=== PATIENT | male | born 1995 | race Asian ===

== ENCOUNTER 2019-06-30 17:23 | Inpatient (IN) | payer OTHER ==
--- NOTE | 2019-06-30 17:44 | ED ---
Psychiatric Complaint - HPI Summary HPI Summary: 89-[id number]-ucb-year-old male with no significant past medical history presents to the emergency department today under 945 order with suicidal ideation. Patient was sent to the emergency department via EMS after speaking with [facility] counselor who desired for him to be evaluated in the emergency department. Patient endorses suicidal ideation but denies homicidal ideation. Patient states he has had suicidal thoughts in the past but never any gestures of self- harm. Patient has a plan stating he "thinks about jumping off a bridge at [place]." Patient states he has walked along the [place] at night and sat on the edge but has never gone through with jumping off. Patient states hes felt depressed for weeks and is finally desiring evaluation. Patient denies recent recreational drug use or alcohol use. Patient has 3 roommates which he states he is not close with. Patient does not have access to firearms. The patient otherwise feels well and denies physical pain, fever, chest pain, shortness of breath, abdominal pain, rash, pain with urination. Surgical history noncontributory. - History Of Current Complaint Hx Obtained From: Patient Onset/Duration: Gradual Onset Timing: Constant Severity Initially: Moderate Severity Currently: Moderate Character: Depressed, Anxious Aggravating Factor(s): Recent Stress Alleviating Factor(s): Nothing Associated Signs And Symptoms: Positive: Sleep Disturbance, Appetite Change, Social Withdrawal Has Suicidal: Reports: Thoughts, With A Plan. Denies: Demonstrates Gesture, Has Prior Attempt(s) Has Homicidal: Denies: Thoughts, With A Plan, Demonstrates Gesture, Has Prior Attempt(s) - Allergies/Home Medications Allergies/Adverse Reactions: Allergies Allergy/AdvReac Type Severity Reaction Status Date / Time No Known Allergies Allergy Verified 06/30/19 17:45 Home Medications: Home Medications NK [No Home Medications Reported] 06/30/19 [History Confirmed 06/30/19] PMH/Surg Hx/FS Hx/Imm Hx Infectious Disease History: No Infectious Disease History: Denies: Traveled Outside the [place] in Last 30 Days Review of Systems Constitutional: Negative Eyes: Negative ENT: Negative Cardiovascular: Negative Respiratory: Negative Gastrointestinal: Negative Genitourinary: Negative Musculoskeletal: Negative Skin: Negative Neurological: Negative Positive: Anxious, Depressed All Other Systems Reviewed And Are Negative: Yes Physical Exam - Summary Physical Exam Summary: Patient makes poor eye contact and conversation but does not have a flat affect. Patient is very cooperative and sincere. Triage Information Reviewed: Yes Vital Signs On Initial Exam: Initial Vitals Temp Pulse Resp BP Pulse Ox 98.4 F 63 16 142/64 99 06/30/19 17:33 06/30/19 17:33 06/30/19 17:33 06/30/19 17:33 06/30/19 17:33 Vital Signs Reviewed: Yes Appearance: Positive: Well-Appearing, No Pain Distress, Well-Nourished Skin: Positive: Warm, Skin Color Reflects Adequate Perfusion Eyes: Positive: EOMI, JOSELUIS ENT: Positive: Hearing grossly normal Respiratory/Lung Sounds: Positive: Clear to Auscultation, Breath Sounds Present Cardiovascular: Positive: RRR, S1, S2 Abdomen Description: Positive: Nontender, Soft Bowel Sounds: Positive: Present Musculoskeletal: Positive: Strength/ROM Intact Neurological: Positive: Sensory/Motor Intact, Alert, Oriented to Person Place, Time, Normal Gait, Facial Symmetry, Speech Normal Psychiatric: Positive: Normal, Affect/Mood Appropriate, Anxious, Depressed AVPU Assessment: Alert Procedures - Sedation Patient Received Moderate/Deep Sedation with Procedure: No Diagnostics - Vital Signs Vital Signs Temp Pulse Resp BP Pulse Ox 06/30/19 17:33 98.4 F 63 16 142/64 99 - Laboratory Result Diagrams: 06/30/19 17:42 06/30/19 17:42 Lab Statement: Any lab studies that have been ordered have been reviewed, and results considered in the medical decision making process. Course/Dx - Course Course Of Treatment: Patient was evaluated in the emergency department today for suicidal ideation. Patient was seen and examined their vital signs are stable and they were afebrile. Upon arrival to emergency department the patient was placed in a safe room, placed under observation and changed into hospital scrubs. Their belongings were collected and placed in a locked box. Laboratory studies were ordered for mental health clearance including urinalysis and toxicology. Labs returned WNL, negative toxicology screen. Patient was cleared for mental health evaluation and disposition by psychiatric services. Pt signed out to ED attending Dr. Rees at 0324. - Differential Dx/Clinical Impression Differential Diagnosis/HQI/PQRI: Positive: Acute Psychosis, Anxiety, Bipolar Disorder, Depression, Suicide Attempt, Suicidal Ideation, Suicidal Gesture Provider Diagnosis: Suicidal ideation Discharge ED - Sign-Out/Discharge Documenting (check all that apply): Sign-Out Patient Signing out patient TO: Neri Rees Receiving patient FROM: Kingsley Richards - Discharge Plan Referrals: No Primary Care Phys,NOPCP [Primary Care Provider] -
[2019-06-30 17:50] LABS: ABS Eosinophils 0.1 10^3/ul (0-0.6); ABS Lymphocytes 1.6 10^3/ul (1.0-4.8); ABS Monocytes 0.6 10^3/ul (0-0.8); ABS Neutrophils 3.8 10^3/ul (1.5-7.7); Hematocrit 41 % (42-52); Hemoglobin 14.3 g/dL (14.0-18.0); Lymphocyte % 26.1 %; Mean Corpuscular HGB Conc 35 g/dL (31-36); Mean Corpuscular Hemoglobin 31 pg (27-31); Mean Corpuscular Volume 89 fL (80-94); Mean Platelet Volume 7.6 fL (7.4-10.4); Platelet Count 206 10^3/uL (150-450); Red Blood Count 4.65 10^6 /uL (4.18-5.48); Red Cell Distribution Width 13 % (10-15); White Blood Count 6.2 10^3/uL (3.5-10.8)
[2019-06-30 18:09] LABS: ALT 17 U/L (7-52); AST 29 U/L (13-39); Albumin 4.1 g/dL (3.2-5.2); Albumin/Globulin Ratio 1.7 (1-3); Alkaline Phosphatase 89 U/L (34-104); Anion Gap 5 mmol/L (2-11); BUN/Creatinine Ratio 13.7 (8-20); Blood Urea Nitrogen 14 mg/dL (6-24); CO2 Carbon Dioxide 28 mmol/L (22-32); Calcium 8.8 mg/dL (8.6-10.3); Chloride 108 mmol/L (101-111); EGFR African American 111.6 (>60); EGFR Non-African American 92.2 (>60); Globulin 2.4 g/dL (2-4); Glucose 112 mg/dL (70-100); Potassium 3.7 mmol/L (3.5-5.0); Sodium 141 mmol/L (135-145); Total Protein 6.5 g/dL (6.4-8.9)
[2019-06-30 18:12] LABS: Acetaminophen < 15 mcg/mL; Alcohol < 10 mg/dL (<10); Salicylate < 2.50 mg/dL (<30)
[2019-06-30 18:27] LABS: TSH (Thyroid Stimulating Horm) 2.42 mcIU/mL (0.34-5.60)
[2019-06-30 18:41] LABS: Urine Appearance Clear; Urine Bilirubin Negative (Negative); Urine Blood Negative (Negative); Urine Color Yellow; Urine Glucose Negative (Negative); Urine Ketones Negative (Negative); Urine Nitrite Negative (Negative); Urine Protein Negative (Negative); Urine Specific Gravity 1.014 (1.010-1.030); Urine Urobilinogen Negative (Negative)
[2019-06-30 19:10] LABS: Urine Benzodiazepine Screen None Detected (None Detect); Urine Opiates Screen None Detected (None Detect)
--- NOTE | 2019-07-01 03:39 | ED ---
Progress - Progress Note Progress Note: Patient is a sign-out at 02:30 on 07/01/19 from ADRIÁN Oliva to Dr. Neri Rees MD at shift change, pending mental health hold and disposition. Patient is a sign-out at 07:00 on 07/01/[address] Neri Rees MD to Dr. Jerry Peterson DO at shift change, pending mental health hold and disposition. Course/Dx - Course Course Of Treatment: Patient is a sign-out at 02:30 on 07/01/19 from ADRIÁN Oliva to Dr. Neri Rees MD at shift change, pending mental health hold and disposition. Patient is a sign-out at 07:00 on 07/01/[address] Neri Rees MD to Dr. Jerry Peterson DO at shift change, pending mental health hold and disposition. - Diagnoses Provider Diagnoses: Suicidal ideation, Depressive disorder Discharge ED - Sign-Out/Discharge Documenting (check all that apply): Sign-Out Patient, Receiving Sign-Out Signing out patient TO: Brenden Peterson - Patient is a sign-out at 07:00 on 07/01/[address] Neri Rees MD to Dr. Jerry Peterson DO at shift change, pending mental health hold and disposition. Receiving patient FROM: Kingsley Richards - Patient is a sign-out at 02:30 on 07/01/19 from ADRIÁN Oliva to Dr. Neri Rees MD at shift change, pending mental health hold and disposition. - Discharge Plan Condition: Stable Disposition: [facility] [place] Billing Disposition and Condition Condition: STABLE Disposition: Psychiatric Facility [facility] - Attestation Statements Document Initiated by Scribe: Yes Documenting Scribe: Mayra Bhagat Provider For Whom Kristinaibe is Documenting (Include Credential): Neri Rees MD Scribe Attestation: Mayra Scott scribed for Neri Rees MD on 07/02/19 at 0411. Scribe Documentation Reviewed: Yes Provider Attestation: The documentation as recorded by the Mayra lorenzana accurately reflects the service I personally performed and the decisions made by me, eNri Rees MD Status of Scribe Document: Viewed
--- NOTE | 2019-07-01 07:25 | ED ---
Progress - Progress Note Progress Note: Patient is received from at 0700 07/01/2019. Pending mental health hold. Disposition. Course/Dx - Course Course Of Treatment: Patient is received from at 0700 07/01/2019. Pending mental health hold. Disposition. in states bed has become available for the pt. Pt voluntarily admits to [facility] psych. - Diagnoses Provider Diagnoses: Suicidal ideation, Depressive disorder - Provider Notifications Discussed Care Of Patient With: Josesito Kaur Time Discussed With Above Provider: 11:41 Instructed by Provider To: Admit As Inpatient Discharge ED - Sign-Out/Discharge Documenting (check all that apply): Patient Departure - Admit - Discharge Plan Condition: Stable Disposition: [facility]ATRIC [facility]AC[facility] Referrals: [facility]Outside] [facility] - [facility] [[employer], APPLICATION, OTHER] - - Billing Disposition and Condition Condition: STABLE Disposition: Psychiatric Facility [facility] - Attestation Statements Document Initiated by Scribe: Yes Documenting Scribe: Jose Juan Salgado Provider For Whom Scribe is Documenting (Include Credential): Jerry Peterson DO Scribe Attestation: IJose Juan, mikkiibed for Jerry Peterson DO on 07/01/19 at 1232. Scribe Documentation Reviewed: Yes Provider Attestation: The documentation as recorded by the Jose Juan lorenzana accurately reflects the service I personally performed and the decisions made by Jerry plasencia DO Status of Scribe Document: Viewed
[2019-07-01] MEDS ORDERED: Al Hydrox/Mg Hydrox/Simet LIQ* 30 ML UDC PO PRN (11:34)
[2019-07-01] MEDS ORDERED: Acetaminophen TAB* 325 MG PO PRN (11:34)
[2019-07-01] MEDS ORDERED: hydrOXYzine HCL TAB* 50 MG PO PRN (11:35)
--- NOTE | 2019-07-02 17:29 | HP ---
INITIAL PSYCHIATRIC EVALUATION: DATE OF ADMISSION: 07/02/19 TOTAL TIME SPENT: 60 minutes for this evaluation. CHIEF COMPLAINT: "I am depressed and suicidal." HISTORY OF PRESENT ILLNESS: The patient is a 23-year-old [place] Islander male who presented to [facility] ER for psychiatric evaluation and medication management. The patient reported that he was referred to this hospital by his therapist after he complained of severely depressed mood, social isolation, hopelessness, helplessness, and fear of unemployment after graduation in October. The patient reported that at times he feels suicidal with plan to jump over a bridge or hang himself. He described his mood as severely depressed. He reported hopelessness, helplessness, and worthlessness. The patient stated that his main stressors include starting and fear of failing, loneliness, and he feels that he is under a lot of pressure because he does not want to disappoint his mom (tiger parents). The patient stated that sometimes he just feel numb and alone. He reported crying spells. 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 He said the only way I escape boredom is by studying. The patient stated that at times that he will walk [place] as if he is rehearsing how to commit suicide. During this evaluation, the patient denies current suicidal or homicidal ideation. 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 The patient then stated that there are times he will be thinking he can identify with him and possibly could do exactly what he did. He reported anhedonia, low energy, poor sleep, helplessness, and emptiness. He, however, denies paranoia, psychosis, ritualistic behavior. The patient denies any history of persecutory delusion or any form of abuse including physical, verbal, emotional, or sexual abuse. He denies any history of nightmares, flashback, or weird dreams. PAST PSYCHIATRIC HISTORY: The patient currently is not on any medication. He stated that he has attempted suicide one time and that was about in March 2018 when he had an urge to jump off the bridge. He actually sat at the edge of the bridge but for some reason he stopped himself. He denies any history of self- mutilation, current access to gun. He endorsed occasional problem with anger management. Currently, he does not have outpatient psychiatrist. PAST MEDICAL HISTORY: The patient does not have any primary care doctor. He denied any history of asthma, diabetes, hypertension, heart disease, hypothyroidism, exposures to HIV, TB, or hepatitis. PAST SURGICAL HISTORY: The patient had excision of a skin mole at the age of 19 , and he had a left shoulder repair at the age of 9. ALLERGIES: The patient reported allergies to MINOCYCLINE CREAM. FAMILY HISTORY: Significant for depression. The patient denied family history of suicide or drugs. LEGAL HISTORY: The patient denies. SUBSTANCE ABUSE HISTORY: The patient denies. SOCIAL HISTORY: The patient was born in [place], raised in [place]. He has a brother who is 28 years old. He went to [employer]. He graduated high school in 2005. Currently, he is studying [email or web address] science at [employer] He reported good grades in school but worries about unemployment after graduation in October. REVIEW OF SYSTEMS: All systems were reviewed and were negative except what is discussed under the HPI. PHYSICAL EXAMINATION Vitals: Temperature is 97.2, pulse is 57, respiratory rate is 14, oxygen saturation is 100%. MENTAL STATUS EXAM: The patient is alert and oriented to person, place, situation, and time. He is appropriately dressed, maintains fair eye contact. His speech is spontaneous with low rate and volume. Thought process is linear, coherent, and goal directed. He denied current suicidal or homicidal ideation. Mood disturbed and severely depressed. Affect is blunted. Insight and judgment are fair. Both recent and remote memory are intact. There is no evidence of tangentiality, circumstantiality, or any abnormal involuntary movement. Attention and concentration are fair. Impulse control is fair. Language is intact. Gait is stable. PSYCHIATRIC DIAGNOSES: 1. Major depressive disorder, single episode, severe without psychotic features. 2. Generalized anxiety disorder and avoidant personality disorder. SUBSTANCE ABUSE DIAGNOSES: None. MEDICAL DIAGNOSIS: Acne. ASSESSMENT: The patient is a 23-year-old [place] Island[place] male who presented to [facility] ER for psychiatric evaluation and medication management. The patient reported severe depression and suicidality and plan to jump over the bridge or hang himself. The patient also reported problem with relating with other people because of the fear of being scrutinized or judged. PLAN: The patient will be admitted to [facility]. He will be monitored on a daily basis. The patient will be started on Lexapro 20 mg p.o. daily for mood and anxiety, BuSpar 5 mg p.o. b.i.d. for anxiety. Risks and benefits of the medications have been discussed with the patient and the patient stated understanding. The patient is advised to notify staff if he feels suicidal or homicidal. He is counseled to participate in both individual and group psychotherapy. The patient's problem list include depressed mood, anxiety, risk of suicide, poor impulse control. All these problems listed will be treated with both medication management and psychotherapy. The patient's lab results, CBC with differential is within normal range except for hematocrit which is 41. Comprehensive metabolic panel is within normal range except for glucose which is 112. Urinalysis negative for nitrites and leukocytes. Urine drug screen is negative. [id number]/[facility] #: [id number] HILARY
[2019-07-02] MEDS: busPIRone TAB* 5 MG PO SCH (21:03)
[2019-07-03] MEDS: Escitalopram * 20 MG TABLET PO SCH (09:09)
[2019-07-03] MEDS: busPIRone TAB* 5 MG PO SCH ×2 (09:09→21:11)
[2019-07-04] MEDS: busPIRone TAB* 5 MG PO SCH ×2 (08:47→21:00)
[2019-07-04] MEDS: Escitalopram * 20 MG TABLET PO SCH (08:47)
--- NOTE | 2019-07-04 14:41 | PN ---
Subjective - Subjective Date of Service: 07/04/19 Service Type: 84713 Hosp care 15 min low complexity Subjective: Patient is pleasant and conversational. He explains family dynamics and his parents, specifically his father, being stereotypical parents. He states he puts pressure on himself to be perfect and obtaining 100% on all college coursework. 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 He describes reviewing his high school and college years, regretting that he did not have social outlets despite people inviting him. He states that being hospitalized has been helpful in that he no longer views suicide as an option. He states he phoned his parents and was surprised by their emotional support. He is future oriented and hopes to join the workforce after graduation or apply to graduate school. He has questions about diagnoses and medications. He denies side effects and states understanding of probable 2-4 weeks for efficacy. Objective - General Observations Appearance: Well Groomed Stature: Thin Posture: WNL Eye Contact: Average - Interaction Observations Attitude Towards Examiner: Cooperative, Anxious Stated Mood: Euthymic Affect: Bright Speech Pattern/Tone: Clear Thought Process: Coherent, Goal Directed Perception: WNL Thought Content: WNL Hallucination Type: Denies Delusion Type: Denies - Cognitive Function Orientation: A&O x 4 Level of Consciousness: Alert Cognition: WNL Estimated Intelligence: Normal Insight: WNL Judgment Within Normal Limits: Yes - Medication Compliance Cooperative with Inpatient Medication Regimen: Yes - Group Participation Participates in Group Activities: Yes Assessment - Assessment Merits Inpatient Hospitalization: For Immediate Safety, For Stabilization Inpatient DSM-V Dx: F32.9 Clinical Impression: 23yo [place] male who presented to ED from [facility] due to suicidal ideation and parasuicidal behavior. He has been started on escitalopram and buspirone and is tolerating these well. He reports improvement in mood and denies suicidal ideation. Discharge planning tentative for 07/06/19. Plan - Plan Treatment Plan: Name: LISANDRO GOLDEN Birthdate: 1995 [id number] continue acute intensive psychiatric treatment. may decrease to q30min and allow staff pass and computer use. continue current medications. discharge to include [facility], tentative 07/06/2019. Medications: Current Medications Acetaminophen (Tylenol Tab*) 650 mg PO Q4H PRN PRN Reason: for pain; or Temp >101 F Al Hydrox/Mg Hydrox/Simethicone (Maalox Plus*) 30 ml PO Q4H PRN PRN Reason: INDIGESTION Buspirone HCl (Buspar Tab*) 5 mg PO BID [facility] Last Admin: 07/04/19 08:47 Dose: 5 mg Escitalopram Oxalate (Lexapro *) 20 mg PO DAILY [facility] Last Admin: 07/04/19 08:47 Dose: 20 mg Hydroxyzine HCl (Atarax Tab*) 50 mg PO Q6H PRN PRN Reason: anxiety - Discharge Plan Discharge Plan: Inpatient Hospitalization Outpatient Program: Counseling/Psych Services at [place]
--- NOTE | 2019-07-04 14:59 | HP ---
HISTORY AND PHYSICAL: ADDENDUM: PHYSICAL EXAMINATION Please refer to ED physician's note. [id number]/[facility] #: [id number]
[2019-07-05 08:50] VITALS: BP 119/70
[2019-07-05] MEDS: Escitalopram * 20 MG TABLET PO SCH (09:59)
[2019-07-05] MEDS: busPIRone TAB* 5 MG PO SCH (09:59)
--- NOTE | 2019-07-06 22:11 | DS ---
CC: [facility] * DISCHARGE SUMMARY: DATE OF ADMISSION: 07/02/19 DATE OF DISCHARGE: 07/05/19 SUPERVISING PSYCHIATRIST: Josesito Kaur MD * (DICTATED BY KEE CISNEROS NP) DISCHARGE DIAGNOSES: 1. Major depressive disorder, single episode, severe without psychotic features. 2. Generalized anxiety disorder. 3. Avoidant personality disorder. CONDITION AT THE TIME OF DISCHARGE: Improved. The patient is euthymic with bright affect. He reports resolution of suicidal ideation. He reports benefiting from admission to the hospital and he no longer views suicide as an option. He states he phoned his parents and was surprised by their emotional support and states they are en route to support him in transition back home. He has started escitalopram and buspirone, and denies side effects and states understanding of probable 2 to 4 weeks for efficacy. He completed a safety plan. He is future oriented. He is generally pleasant and conversational. The patient is discharged to home. MENTAL STATUS EXAM: The patient is a 23-year-old [place] male who appears as stated age. He has got an average and muscular build. He is pleasant and cooperative and appears to be an excellent historian. He is alert and oriented x3. Eye contact is good. Speech is spontaneous and rapid at times. Concentration is good. Memory is 3/3. Mood is euthymic with bright affect. No abnormal psychomotor activity noted. Thought process is logical, goal directed, and coherent. Thought content is negative for SI or passive wish. He denies HI or . He denies auditory or visual hallucinations. There are no perceptual disturbances noted. Insight and judgment are good. He has at least an average intellect and his fund of knowledge is excellent. INSTRUCTIONS GIVEN TO THE PATIENT: A. Medications: 1. Buspirone 5 mg p.o. b.i.d. 2. Escitalopram 20 mg p.o. daily. B. Diet: Regular. C. Activity: Ambulation as tolerated. Tobacco cessation is not applicable. There are no pending labs or diagnostic studies. D. Followup care: The patient was referred back to [facility] and has an appointment with a crisis counsellor on the day of discharge. From there, he will be set up with psychiatric providers. E. Substance use followup: Not applicable. HOSPITAL COURSE: Part A. Reason for admission: The patient presented to [facility] due to thoughts of suicide, depressed mood, and social isolation. He reports that he is very fearful of his future after graduation pending in October. He has thoughts of suicide to jump over a bridge or hang himself. He describes his mood as severely depressed. He reported hopelessness, helplessness, and worthlessness. He stated that his main stressors include fear of feeling loneliness and that he feels like he is under a lot of pressure, because he does not want to disappoint his parents. He also endorses self-induced pressure of perfection. He states sometimes he feels numb and alone. He reports crying spells. He reports that he will walk near [facility] as if he is rehearsing how to suicide. He endorses anhedonia, low energy, poor sleep, helplessness, emptiness. He denies paranoia, psychosis or ritualistic behavior. He denies any history of abuse. Part B. Psychiatric Treatment Rendered. The patient was admitted to adult behavioral services unit on a voluntary status. Code status was full. He was placed on 15 minute checks for safety. This was decreased to 30 minute observation and he was allowed staff pass and computer use privileges. He started escitalopram and buspirone. He denied side effects. He reported much improvement in mood and anxiety. He identified being hospitalized on this unit , was hopeful and that he was able to relate to peers and identified that he has a lot more life that is worth living. He reported desire to continue treatment at [facility]. As stated above, he reached out his parents and was surprised by their emotional support. He is receptive to psychoeducation about anxiety and seems motivated to engage in recovery efforts. The patient is encouraged to call this unit with any questions after discharge. He completed the safety plan with social media director. He was safe on all checks and denied suicidal ideation. He reported readiness for discharge and was agreeable to discharge plan. KEE CISNEROS NP [id number]/[facility] #: [id number] [place]IL[place]
== END 2019-07-05 13:00 | disposition home or self-care (01) | DRG 885 ==
LOC: ED 17:23 → BSU 07-01 11:34 → ED 07-01 19:00
PROVIDERS: ADMIT Psychiatry & Neurology Psychiatry; ATTEND Psychiatry & Neurology Psychiatry
DX: F32.2 Major depressive disorder, single episode, severe without psychotic features (principal); R45.851 Suicidal ideations; F41.1 Generalized anxiety disorder; F60.6 Avoidant personality disorder; Z79.899 Other long term (current) drug therapy; Z91.5 Personal history of self-harm
CPT/HCPCS: 36415; 80053; 80307; 80320; 80329; 81003; 84443; 85025; 93005; 99222; 99231; 99238; 99285; A9270-GY; G0480